=== PATIENT | male | born 1950 | race Caucasian/White ===

== ENCOUNTER → 2016-08-03 | Outpatient (CLI) | payer MEDICARE, OTHER ==
[~2016-08-03] MED LIST: AMIODARONE PO; ASPIRIN81 M1 PO; ASPIRIN81 MG PO; BUMETANIDE1 MG PO; COREG3.125 MG PO; DICLOFENAC SOD100 MG PO; LIPITOR80 MG PO; LOTREL 5-20 MG1 CAP PO; MULTIPLE VITAMI1 T11 PO; POTASSIUM CHLO10 ME1 PO; WARFARIN SODIU2.5 M1 PO; ZOCOR20 MG PO
[2016-08-03 10:08] LABS: BUN/CREATININE RATIO 15.38; CALCIUM SERUM 9.2 mg/dL (8.4-10.2); CREATININE SERUM 1.3 mg/dL (0.6-1.4); GLOM FILT RATE Estimated 58.5 mL/min (>60); POTASSIUM 4.7 mmol/L (3.5-5.1)
== END | disposition home or self-care (01) ==
LOC: CLAB 08:28
PROVIDERS: Nurse Practitioner
DX: I25.5 Ischemic cardiomyopathy (principal)
CPT/HCPCS: 36415; 80048

== ENCOUNTER → 2016-11-26 | Outpatient (CLI) | payer MEDICARE, OTHER ==
--- NOTE | ~2016-11-26 | MY26 ---
[facility] A Service of [facility] RADIOLOGY TEXT RESULTS PATIENT: BING GRANGER LOCATION: [facility] : 46 UNIT #: [id number] AGE: [address]: Kike Holbrook MD SEX: M ORDER DR: [id number] [facility] [address] [place], [place] [address] [id number] O MR#: [id number] Acc #: [id number] NAME: BING GRANGER. : 1950 SEX: M STUDY DATE/TIME: 11/26/2016 10:14 UNIT: [facility] ROOM: STUDY DESCRIPTION: [facility] DIAGNOSTIC W/ CAD BILAT Attending Physician: Kike Holbrook M.D. Ordering Physician: Kike Holbrook M.D. Primary Care Physician: Kike Holbrook M.D. MEDICAL IMAGING REPORT This report is preliminary unless electronic signature is present EXAM Bilateral digital diagnostic mammogram with CAD 11/26/2016. INDICATIONS 65-year-old male with complaint of a nodule behind the left breast nipple for 3 weeks. No personal or family history of breast cancer. No surgeries. TECHNIQUE CC, MLO, and compression MLO views of the left breast, along with a standard MLO view of the right breast, were obtained and reviewed with an FDA-approved CAD device. COMPARISON No comparisons. FINDINGS There is asymmetric density in a flame-shaped configuration subjacent to the left nipple. This becomes less dense along the periphery and fades into background parenchyma. Imaging features are most characteristic of gynecomastia. Similar findings to a lesser extent on the right. No distinct mass or suspicious cluster of microcalcifications. No adenopathy. Absent new or worsening symptoms in either breast, clinical considerations should determine additional imaging at this point. Findings and recommendations were discussed with the patient who voiced understanding and agreement. IMPRESSION Imaging findings most characteristic of gynecomastia, a benign finding. See discussion above. Patients over the age of 40 are entered into a reminder system with target [facility] A Service [facility] RADIOLOGY TEXT RESULTS PATIENT: BING GRANGER LOCATION: [facility] : 46 UNIT #: [id number] AGE: [address]: Kike Holbrook MD SEX: M ORDER DR: due date for the next mammogram. A result letter will also be sent to the patient. BIRADS: 2 Benign finding. Dictated by... Kris Bah M.D. THIS IS AN ELECTRONICALLY VERIFIED REPORT Kris Bah M.D. at 11/26/2016 4:01 PM Ronnell TD: 11/26/2016 11:15 JOB #: [id number] MEDICAL IMAGING REPORT Page 1 of 1 COPY
== END | disposition home or self-care (01) ==
LOC: CMAM 09:47
DX: N64.4 Mastodynia (principal)
CPT/HCPCS: G0204

== ENCOUNTER → 2016-12-03 | Outpatient (CLI) | payer MEDICARE, OTHER ==
[2016-12-03 10:45] LABS: BUN/CREATININE RATIO 20.76; CALCIUM SERUM 9.4 mg/dL (8.4-10.2); CREATININE SERUM 1.3 mg/dL (0.6-1.4); GLOM FILT RATE Estimated 56.5 mL/min (>60); POTASSIUM 4.7 mmol/L (3.5-5.1)
== END | disposition home or self-care (01) ==
LOC: CLAB 08:46
PROVIDERS: Internal Medicine Cardiovascular Disease
DX: I25.5 Ischemic cardiomyopathy (principal)
CPT/HCPCS: 36415; 80048